=== PATIENT | female | born 1990 | race Caucasian/White ===

== ENCOUNTER 2021-01-10 12:04 | Outpatient (CLI) | payer OTHER | END 2021-01-10 13:04 | disposition home or self-care (01) | LOC: NST 12:04 | PROVIDERS: ATTEND Obstetrics & Gynecology | DX: Z34.83 Encounter for supervision of other normal pregnancy, third trimester (principal) ==

== ENCOUNTER 2021-02-05 07:00 | Inpatient (IN) | payer OTHER ==
[~2021-02-05] VITALS: Ht 162.6 cm; Wt 3.6 kg
[2021-02-07] MEDS ORDERED: VALTREX1000 MG PO (09:47)
[2021-02-07] MEDS ORDERED: PRENATAL TABLE1 EAC1 PO (09:48)
[2021-02-07] MEDS ORDERED: VALACYCLOVIR500 MG (13:40)
== END 2021-02-09 13:14 | disposition home or self-care (01) | DRG 785 ==
LOC: OB/GYN 02-07 07:00 → O/R 02-07 08:34 → OB/GYN 02-07 08:34
PROVIDERS: ADMIT Obstetrics & Gynecology; ATTEND Obstetrics & Gynecology
PROC: 0UB70ZZ Excision of Bilateral Fallopian Tubes, Open Approach (ICD-10-PCS; 2021-02-07)
PROC: 4A1HXFZ Monitoring of Products of Conception, Cardiac Rhythm, External Approach (ICD-10-PCS; 2021-02-07)
PROC: 10D00Z1 Extraction of Products of Conception, Low, Open Approach (ICD-10-PCS; principal; 2021-02-07 13:45)
DX: O34.211 Maternal care for low transverse scar from previous cesarean delivery (principal); Z30.2 Encounter for sterilization; O82 Encounter for cesarean delivery without indication; Z3A.39 39 weeks gestation of pregnancy; Z37.0 Single live birth; O99.824 Streptococcus B carrier state complicating childbirth